=== PATIENT | female | born 1985 | race Caucasian/White ===

== ENCOUNTER 2018-08-14 22:05 | Emergency (ER) | payer OTHER ==
[2018-08-14 22:25] VITALS: BP 152/99; PULSE 78; TEMP 98.3; BMI 28.0
[2018-08-14] MEDS ORDERED: DIPHTH,PERTUSS(ACELL),TET 0.5 ML DISP.SYRIN IM ONE ×2 (23:19→23:23)
[2018-08-14] MEDS ORDERED: ACETAMINOPHEN 325 MG TABLET (FP) PO ONE (23:19)
--- NOTE | 2018-08-14 23:19 | PDOC ---
History of Present Illness - General Chief Complaint: Redness To Affected Area Stated Complaint: SWOLLEN FINGER Time Seen by Provider: 08/14/18 23:15 History Source: Patient Exam Limitations: No Limitations - History of Present Illness Initial Comments: 08/14/18 23:15 33 year old female with no PMH presented to ED for right first finger redness/ swelling/pain since last night. Pt stated she accidentally cut her finger on a can yesterday. She denied fever, chills, nausea, vomiting, abdominal pain, chest pain, shortness of breath, lightheadedness. Allergies: NKDA Past History - Past Medical History Allergies/Adverse Reactions: Allergies Allergy/AdvReac Type Severity Reaction Status Date / Time No Known Allergies Allergy Verified 01/19/16 19:43 Home Medications: Ambulatory Orders Amoxicillin - [Amoxicillin 500mg Capsule -] 500 mg PO TID #21 capsule 01/19/16 Anemia: Yes Asthma: No Cardiac Disorders: No Diabetes: No GI Disorders: No Disorders: No HTN: No Hypercholesterolemia: No - Surgical History Abdominal Surgery: No - Reproductive History (#): 1 Para: 1 Therapeutic (s) & number: Yes (1) Spontaneous : 2 - Immunization History Immunization Up to Date: No - Suicide/Smoking/Psychosocial Hx Smoking Status: No Smoking History: Unknown if ever smoked Have you smoked in the past 12 months: Yes Number of Cigarettes Smoked Daily: 0 Hx Alcohol Use: Yes (Social) Drug/Substance Use Hx: No Substance Use Type: None Review of Systems - Review of Systems Able to Perform ROS?: Yes Comments:: 08/14/18 23:16 General: denied fever, chills, generalized weakness. HEENT: denied sore throat, rhinorrhea, ear pain. Heart: denied chest pain, palpitations, syncope, diaphoresis. Respiratory: denied shortness of breath, cough, sputum production, hemoptysis. Abdomen: denied abdominal pain, nausea, vomiting, diarrhea, constipation, blood in stool. : denied dysuria, increased urinary frequency, hematuria, urinary incontinence , flank pain. Back: denied back pain. Musculoskeletal: admitted to right finger pain. denied muscle pain. Neurological: denied headache, dizziness, numbness, tingling, weakness. Skin: denied rash, laceration, abrasion. *Physical Exam - Vital Signs Last Vital Signs Temp Pulse Resp BP Pulse Ox 98.3 F 78 20 152/99 100 08/14/18 22:23 08/14/18 22:23 08/14/18 22:23 08/14/18 22:23 08/14/18 22:23 - Physical Exam Comments: 08/14/18 23:16 Constitutional: Well-nourished, Well-developed, appearing stated age. HEENT: head is normocephalic, atraumatic. EOMI. PERRLA. Neck: supple. Full ROM. Heart: regular rhythm. no murmurs, rubs or gallops. Lungs: clear to auscultation bilaterally. no crackles, rhonchi or wheezing. no stridor. Abdomen: soft, nontender. normal bowel sounds. no rebound, guarding, masses. Extremities: tenderness to palpation of right 1st finger DIP. full MCP and PIP ROM of right first finger. decreased DIP ROM to right 1st finger secondary to pain. peripheral pulses intact. no pain to palpation of flexor surface of right 1st finger. no pain with active or passive flexion of right 1st MCP/PIP. no sausage finger to right 1st finger. Neurological: CN 2-12 grossly intact. moves all four extremities. full sensation to right finger. Psych: awake, alert, oriented x3. follows commands. answers questions appropriately. Skin: redness and swelling to right 1st finger DIP consistent with paronychia. no redness or tenderness to pulp of right first finger, consistent with no felon. no streaking. no crepitus. Medical Decision Making - Medical Decision Making 08/14/18 23:17 33 year old female with no PMH presented to ED for right 1st finger DIP swelling /redness since last night after she cut herself on a can. Pt is unclear of last tetanus shot. Initial Vital Signs Temp Pulse Resp BP Pulse Ox 98.3 F 78 20 152/99 100 08/14/18 22:23 08/14/18 22:23 08/14/18 22:23 08/14/18 22:23 08/14/18 22:23 Afebrile. No tachycardia. No tachypnea. Mild hypertension. No hypoxia on room air. Labs ordered: none Imaging ordered: XR right hang Medications ordered: Tylenol 975 mg PO once, boostrix 08/14/18 23:44 Hand XR: no gross bone or soft tissue abnormality. Developing paronychia, no felon. Pt informed to apply warm compresses and observe for felon development. Pt advised to return in a few days when paronychia will be read for I&D. Pt discharged. *DC/Admit/Observation/Transfer Diagnosis at time of Disposition: Paronychia - Discharge Dispostion Disposition: HOME Condition at time of disposition: Stable Decision to Admit order: No - Referrals - Patient Instructions Printed Discharge Instructions: DI for Paronychia Additional Instructions: You have a Paronychia. It was not ready to be drained today. Apply warm compresses to the area. Take ibuprofen over the counter for your pain, take as advised on labels. Observe the finger for development of white substance under the skin, once this is present the paronychia is ready to be drained. See your primary care doctor at that point or return to the Emergency Department. If you develop redness/swelling/white substance at the TIP of the finger, return immediately to the Emergency Department, as this is development of a Felon. Follow up with your primary care doctor in 2-3 days. Your care is not complete until you follow up. Return to the Emergency Department for redness/swelling/white substance at the TIP of the finger, fever, chill, nausea, vomiting, lightheadedness like you may pass out, chest pain, shortness of breath, inability to move the finger or any other new, worsening or concerning symptoms. - Post Discharge Activity
[2018-08-14] MEDS ORDERED: ACETAMINOPHEN 325 MG TABLET (FP) ONE (23:23)
--- NOTE | 2018-08-15 00:11 | PDOC ---
Documentation entered by Viviane Betancourt SCRIBE, acting as scribe for Carlos Ross MD. Carlos Ross MD: This documentation has been prepared by the Serafin escobar Adrianna, SCRIBE, under my direction and personally reviewed by me in its entirety. I confirm that the documentation accurately reflects all work, treatment, procedures, and medical decision making performed by me. Attending Attestation - Resident Resident Name: Ginny Mckinnon - ED Attending Attestation I have performed the following: I have examined & evaluated the patient, The case was reviewed & discussed with the resident, I agree w/resident's findings & plan, Exceptions are as noted - HPI HPI: The patient is a 33 year old female, with a significant PMH of anemia, who presents to the emergency department today with right index finger pain for one day. Patient notes she cut her right first finger last night after trying to open a can. She endorses localized erythema, swelling, and tenderness to to injured area. Patient is otherwise asymptomatic at this time. The patient denies chest pain, shortness of breath, headache and dizziness. Denies fever, chills, nausea, vomit, diarrhea and constipation. Denies dysuria, frequency, urgency and hematuria. Allergies: NKA Past surgical history: None reported Social history: No reported 08/14/18 23:45 - Physicial Exam PE: 08/15/18 00:08 Agree with exam as documented by resident Distal pulp of R index finger soft, non-tender +erythema at bas of nail of R index finger 2-3mm linear wound over lying erythema on R index finger No fluctuance - Medical Decision Making EXAM#: TYPE/EXAM: RESULT: [id number] RAD/HAND- RIGHT First finger distal interphalangeal joint swelling and redness Impression: No gross bone or soft tissue abnormality seen. Correlate clinically for further evaluation. Reported By: Guero Vega MD 08/14/18 23:37 Infection at base of nail, no palpable drainable pocket, may progress to paronychia Exam inconsistent with felon warm compress re-eval in 2 days
== END 2018-08-15 00:07 | disposition home or self-care (01) ==
LOC: JER 22:05
PROC: 3E0234Z Introduction of Serum, Toxoid and Vaccine into Muscle, Percutaneous Approach (ICD-10-PCS; principal; 2018-08-14)
DX: L03.011 Cellulitis of right finger (principal)
CPT/HCPCS: 73130-TC-RT-FY; 90715; 99281-25